=== PATIENT | female | born 1970 | race Two or more races ===

== ENCOUNTER 2022-07-20 21:43 | Emergency (ER) | payer SELFPAY ==
[~2022-07-20] VITALS: Ht 157.5 cm; Wt 79.8 kg
[2022-07-20 22:20] VITALS: BP 119/79
== END 2022-07-20 22:35 | disposition home or self-care (01) ==
LOC: ER 21:45
DX: I10 Essential (primary) hypertension (principal); Z91.14 Patient's other noncompliance with medication regimen